=== PATIENT | female | born 1995 | race Caucasian/White ===

== ENCOUNTER 2019-02-18 06:46 | Inpatient (IN) ==
[2019-02-18] MEDS ORDERED: NS 1000 ML 0 ML ONE (07:03)
[2019-02-18] MEDS ORDERED: D5 1/2 NS 1000 ML 1,000 ML IV ONE (07:03)
[2019-02-18] MEDS ORDERED: D5LR 1L W PITOCIN 10 UNITS/L 10 UNITS/1,000 ML BAG IV PRN (07:12)
[2019-02-18] MEDS ORDERED: NUBAIN INJ 200 MG VIAL MULTIDOSE IVP PRN (07:12)
[2019-02-18] MEDS ORDERED: PHENERGAN INJ 25 MG IM PRN ×2 (07:12→14:43)
[2019-02-18] MEDS ORDERED: REGLAN INJ 10 MG VIAL IVP PRN ×3 (07:12→15:00)
[2019-02-18] MEDS ORDERED: PITOCIN IVP ONE (07:12)
[2019-02-18] MEDS: D5 1/2 NS 1000 ML 1,000 ML IV SCH ×3 (07:15→22:44)
[2019-02-18] MEDS ORDERED: LR 1000 ML IV 0 ML IV ONE (07:26)
[2019-02-18 07:29] LABS: BILIRUBIN,URINE NEGATIVE (NEGATIVE); BLOOD/HEMOGLOBIN,URINE NEGATIVE (NEGATIVE); GLUCOSE, URINE NEGATIVE (NEGATIVE); KETONES,URINE NEGATIVE (NEGATIVE); LEUKOCYTE ESTERASE ,URINE 3+ (NEGATIVE); NITRITES,URINE NEGATIVE (NEGATIVE); PH,URINE 6.5 (5.0 - 8.0); PROTEIN,URINE NEGATIVE (NEGATIVE); UROBILINOGEN,URINE NORMAL (NORMAL)
[2019-02-18 07:31] LABS: APPEARANCE,URINE SLIGHTLY HAZY (CLEAR); COLOR,URINE YELLOW (YELLOW)
[2019-02-18 07:42] LABS: RBC,URINE 0-2 /HPF (0-3); SQUAMOUS EPITHELIAL CELL,UR MANY /HPF (NEGATIVE)
[2019-02-18 07:43] LABS: AMORPHOUS SEDIMENT,UR TRACE /HPF (NEGATIVE); BACTERIA,URINE NEGATIVE /HPF (NEGATIVE)
[2019-02-18] MEDS ORDERED: NUBAIN INJ 10 ONE (09:32)
[2019-02-18] MEDS ORDERED: FENTANYL INJ 100 mcg ONE (11:17)
[2019-02-18] MEDS ORDERED: LR 1000 ML IV 1,000 ML IV ONE ×2 (11:17→13:35)
[2019-02-18] MEDS ORDERED: NAROPIN EPIDURAL 0.2% + FENTANYL 90MCG 60 ML EPI ONE (11:18)
[2019-02-18] MEDS ORDERED: XYLOCAINE 2% and EPINEPHRINE 1:100,000 ONE (11:30)
[2019-02-18 12:42] LABS: BASOPHILS # (AUTO) 0.1 X10^3/uL (0.0-0.1); BASOPHILS % (AUTO) 0.6 % (0.2-1.0); EOSINOPHILS # (AUTO) 0.1 x10^3/uL (0.0-0.2); EOSINOPHILS % (AUTO) 0.9 % (0.9-2.9); HEMATOCRIT 28.7 % (36.0-47.0); HEMOGLOBIN 8.7 g/dL (12.0-16.0); LYMPHOCYTES # (AUTO) 3.1 X10^3/uL (1.3-2.9); LYMPHOCYTES % (AUTO) 35.2 % (21.0-51.0); MEAN CORPUSCULAR HEMOGLOBIN 19.5 pg (27.0-34.0); MEAN CORPUSCULAR HGB CONC 30.3 g/dL (33.0-35.0); MEAN CORPUSCULAR VOLUME 64.2 fL (80.0-100.0); MEAN PLATELET VOLUME 7.8 fL (7.4-11.0); MONOCYTES # (AUTO) 0.6 x10^3/uL (0.3-0.8); MONOCYTES % (AUTO) 7.2 % (0.0-13.0); NEUTROPHILS # (AUTO) 4.9 x10^3/uL (2.2-4.8); NEUTROPHILS % (AUTO) 56.1 % (42.0-75.0); PLATELET COUNT 421 X10^3/uL (150.0-450.0); RED BLOOD COUNT 4.47 X10^6/uL (3.5-5.4); RED CELL DISTRIBUTION WIDTH 19.2 % (11.6-16.5); WHITE BLOOD COUNT 8.8 X10^3/uL (3.6-10.0)
[2019-02-18 12:46] LABS: BLOOD UREA NITROGEN 5 mg/dL (7-18); CALCIUM 8.3 mg/dL (8.5-10.1); CARBON DIOXIDE 20.7 mmol/L (21-32); CHLORIDE 104 mmol/L (98-107); CREATININE 0.58 mg/dL (0.55-1.02); SODIUM 137 mmol/L (136-145); eGFR NON BLACK RACES > 60 (>60)
[2019-02-18 12:53] LABS: PLATELET MORPHOLOGY COMMENT NORMAL (NORMAL)
[2019-02-18 12:54] LABS: HYPOCHROMASIA 3+; MICROCYTOSIS 2+
[2019-02-18] MEDS ORDERED: ANCEF 1 GRAM IV PREMIX* 1 G/50 ML BAG IV ONE (13:22)
[2019-02-18] MEDS ORDERED: DILAUDID INJ ONE (13:36)
[2019-02-18] MEDS ORDERED: D5 1/2 NS 1L W PITOCIN 20 UNITS/L 20 UNITS/1,000 ML BAG IV ONE (13:37)
[2019-02-18] MEDS ORDERED: ZOFRAN INJ 4 MG VIAL IVP PRN (14:43)
[2019-02-18] MEDS ORDERED: BENADRYL INJ 50 MG VIAL IVP PRN ×2 (14:43→15:00)
[2019-02-18] MEDS ORDERED: MYLICON TAB 80 MG CHEW PO PRN (14:48)
[2019-02-18] MEDS ORDERED: ADACEL or BOOSTRIX TDaP VACCINE IM ONE (14:48)
[2019-02-18] MEDS ORDERED: D5 1/2 NS 1000 ML 1,000 ML with PITOCIN 20 UNITS IV SCH ×2 (15:00)
[2019-02-18] MEDS ORDERED: PERCOCET TAB 5/325 MG PO PRN (15:00)
[2019-02-18] MEDS ORDERED: NARCAN INJ IVP PRN (15:00)
[2019-02-18] MEDS: TORADOL 30 MG VIAL IVP SCH ×2 (16:28→20:43)
[2019-02-18] MEDS: ZOFRAN INJ 4 MG VIAL IVP SCH ×2 (16:39→22:15)
[2019-02-18] MEDS: PriLOSEC PO SCH (20:42)
[2019-02-19] MEDS: D5 1/2 NS 1000 ML 1,000 ML IV SCH ×3 (00:32→08:47)
[2019-02-19] MEDS: TORADOL 30 MG VIAL IVP SCH ×3 (03:50→14:35)
[2019-02-19 05:43] LABS: HEMATOCRIT 22.7 % (36.0-47.0)
[2019-02-19] MEDS: PRENATAL PLUS PO SCH (08:44)
[2019-02-19] MEDS: PriLOSEC PO SCH ×2 (08:44→21:05)
[2019-02-19] MEDS: ZOFRAN INJ 4 MG VIAL IVP SCH (08:46)
--- NOTE | 2019-02-19 15:04 | NOTE.PROBC ---
Progress Note OB-C/S Subjective Data Subjective: No complaints, decreased lochia. Tolerating {regular diet. No N/V. Ambulating well. Pierre draining well. Pain under good control with toradol. Objective Data Result Diagrams: 02/19/19 05:15 02/18/19 07:32 Objective Data: CV= RRR no MRG Lungs=CTA Bilaterally Abd=(+) BS, soft, ND, appropriately tender near incision. Bandage removed. Incision clean/dry/intact, no erythema, no bleeding, no discharge. Dermabond/Stitches intact. Fundus firm/NT/ at -3 cm below umbilicus. Ext= No edema, NT, No Cords. Graduated Compression Stockings/Sequential Compression Devices Bilaterally. Assessment Assessment: routine post op care Plan Plan: advance care and possibly d/c home tomorrow.
[2019-02-19] MEDS: MOTRIN TAB 800 MG PO PRN (16:42)
[2019-02-19] MEDS ORDERED: TORADOL 30 MG VIAL IVP PRN (21:00)
[2019-02-20] MEDS: MOTRIN TAB 800 MG PO PRN ×2 (01:30→10:59)
--- NOTE | 2019-02-20 08:43 | NOTE.PROBC ---
Progress Note OB-C/S Subjective Data Subjective: No complaints, decreased lochia. Tolerating reg diet. No N/V. Ambulating well. Pierre draining well. Pain under good control with toradol. Objective Data Result Diagrams: 02/19/19 05:15 02/18/19 07:32 Objective Data: CV= RRR no MRG Lungs=CTA Bilaterally Abd=(+) BS, soft, ND, appropriately tender near incision. Bandage removed. Incision clean/dry/intact, no erythema, no bleeding, no discharge. Dermabond/Stitches intact. Fundus firm/NT/ a -3 cm below umbilicus. Ext= No edema, NT, No Cords. Graduated Compression Stockings/Sequential Compression Devices Bilaterally. Assessment Assessment: s/p for sever IUGR Plan Plan: F/U in 2 weeks. D/C home today
[2019-02-20] MEDS: PriLOSEC PO SCH (08:44)
[2019-02-20] MEDS: PRENATAL PLUS PO SCH (08:44)
[2019-02-20 12:12] VITALS: BP 118/70
== END 2019-02-20 12:10 | disposition home or self-care (01) | DRG 787 ==
LOC: LD 06:46 → MED/SURG 15:34
PROVIDERS: ADMIT Obstetrics & Gynecology; ATTEND Obstetrics & Gynecology
CPT/HCPCS: 36415; 80048; 81001; 85014; 85018; 85025; 86592; 86850; 86900; 86901; A4222; S0197; J0690; J1170; J1885; J2001; J2405; J2590; J3010; J7120; S5010